=== PATIENT | female | born 1985 | race Caucasian/White ===

== ENCOUNTER 2020-01-29 17:19 | Emergency (ER) | payer OTHER, SELFPAY ==
--- NOTE | 2020-01-29 18:43 | RAD ---
RADIOGRAPH CHEST 1 VIEW: DATE: 01/29/2020 HISTORY: 34-year-old female with fever FINDINGS: There are no airspace densities, pulmonary edema, pneumothorax, or cardiomegaly. The lateral costophr enic angles are sharp. IMPRESSION: No acute cardiopulmonary findings.
[2020-01-29] MEDS ORDERED: Ketorolac Tromethamine 30 MG/ML VIAL ONE ×2 (18:51→18:58)
[2020-01-29 19:37] LABS: Bilirubin Negative (Negative); Blood, Urine Negative (Negative); Clarity Clear (Clear); Glucose, Urine (Dipstick) Normal (Negative); Leukocyte Negative Leu/uL (Negative); Nitrite Negative (Negative); Protein, Urine (Dipstick) Negative (Neg-Trace); Urobilinogen Normal mg/dL (Less than 2)
[2020-01-30 14:55] LABS: SARS-CoV-2 MS2 Positive; SARS-CoV-2 N Gene Negative; SARS-CoV-2 S Gene Negative; SARS-CoV-2 orf1ab Negative
== END 2020-01-29 20:51 | disposition home or self-care (01) ==
LOC: ERS 17:19
DX: R50.9 Fever, unspecified (principal); R51 Headache; Z20.828 Contact with and (suspected) exposure to other viral communicable diseases
CPT/HCPCS: 71045; 81003; 87635; 96372; J1885; U0003